=== PATIENT | female | born 1980 | race Caucasian/White ===

== ENCOUNTER 2017-04-16 11:13 | Emergency (ER) | payer SELFPAY ==
[~2017-04-16] VITALS: Ht 157.5 cm; Wt 109.7 kg
[~2017-04-16 11:13] MED LIST: IBUP-1116 PO; OXYC-360 PO
[2017-04-16 11:26] VITALS: BP 125/86; PULSE 63; RESP 16; TEMP 98.3; O2SAT 97
--- NOTE | 2017-04-16 11:37 | PD ---
HPI . Left ankle pain since 10 AM this morning Chief Complaint: Injury Time Seen by Provider: 11:37 Travel History International Travel<30 days: No Contact w/Intl Traveler<30days: No Traveled to known affect area: No History of Present Illness HPI 36 yr old female with no significant past medical history here with complaints of left ankle pain study and this morning. Patient was walking around her car which accidentally rolled her left ankle. She tells me that it has been weak for quite some time, and seemed to have given out on her today. At rest the pain is 2/10 without radiation, with movement pain is 8/10. Prior to arrival here in the emergency department she took 600 mg of Advil. She denies any head injury or loss of consciousness. She denies any chance of . PFSH Past Medical History Medical History: Denies Significant Hx Diminished Hearing: No Immunizations Current: Yes Tetanus Vaccination: Unknown Influenza Vaccination: No ?: Not LMP: 03/28/17 Past Surgical History Surgical History: No Previous Surgery Social History Alcohol Use: Yes (OCC) Tobacco Use: No Substance Use: No Allergies-Medications (Allergen,Severity, Reaction): Coded Allergies: Keflex (Verified Allergy, Severe, Swelling, 04/16/17) Penicillin (Verified Allergy, Severe, PRECAUTION - PTS MOM HAS ALLERGY, PT HAS NEVER TAKEN, 04/16/17) Reported Meds & Prescriptions Reported Meds & Active Scripts Active Ibuprofen 800 Mg Tab 800 Mg PO TID Review of Systems General / Constitutional: No: Fever Eyes: No: Visual changes HENT: No: Headaches Cardiovascular: No: Chest Pain or Discomfort Respiratory: No: Shortness of Breath Gastrointestinal: No: Abdominal Pain Genitourinary: No: Dysuria Musculoskeletal: Positive: Pain (left ankle) Skin: No Rash Neurologic: No: Weakness Psychiatric: No: Depression Endocrine: No: Polydipsia Hematologic/Lymphatic: No: Easy Bruising Physical Exam Narrative GENERAL: AAO x 3, no acute distress, Well-nourished, well-developed patient. SKIN: Warm and dry. No visible rashes or bruising. Mild edema of the lateral malleolus of the left ankle. HEAD: Normocephalic and atraumatic. EYES: No scleral icterus. No injection or drainage. ENT: No nasal drainage noted. Mucous membranes pink. Airway patent. NECK: Supple, trachea midline. No JVD. CARDIOVASCULAR: Regular rate and rhythm without murmurs, gallops, or rubs. RESPIRATORY: Breath sounds equal bilaterally. No accessory muscle use. No rhonchi or rales. GASTROINTESTINAL: Visual inspection normal EXTREMITIES: No cyanosis. Right lower extremely normal. Left lower extremity mild edema to the lateral malleolus, tenderness with rotation of the ankle, tender to palpation on the lateral malleolus proximal and distal. Capillary refill in the left lower extremity normal. Pedal pulses normal. BACK: No obvious deformity. No CVA tenderness. NEURO: CN II-12 intact, lower extremities strength normal bilaterally PSYCH: AAO x 3, normal affect. Data Data Last Documented VS Vital Signs Date Time Temp Pulse Resp B/P Pulse Ox O2 Delivery O2 Flow Rate FiO2 04/16/17 11:26 98.3 63 16 125/86 97 Orders Ankle, Complete ([id number]) (04/16/17 11:41) Caden Bandage (04/16/17 12:24) Crutches (04/16/17 12:24) MDM Medical Decision Making Medical Screen Exam Complete: Yes Emergency Medical Condition: Yes Medical Record Reviewed: Yes Differential Diagnosis Ankle sprain, less likely ankle fracture, less likely bone contusion Narrative Course 36 yr old female here with complaints of left ankle pain status post twisting earlier today. She has already taken 600 mg of Motrin prior to arrival and pain at this moment is 2/10. Although I do not suspect any acute bony normality, we'll go ahead and check an x-ray she does have some point tenderness to the lateral malleolus. Last Impressions Ankle X-Ray 04/16/17 1141 Signed Impressions: Service Date/Time: Sunday, April 16, 2017 11:51 - CONCLUSION: Unremarkable examination of the left ankle. Girma Slaughter MD Xray no acute fracture: Discussed with patient. Caden wrap and crutches provided. I advised her to follow-up with orthopedics if she continues to experience issues with her left ankle. Patient verbalized understanding of instructions, questions were answered, and thanked me for their care. I advised them if their condition worsens, please return to the nearest emergency room for further care. Diagnosis Primary Impression: Ankle pain, left Qualified Code: M25.572 - Acute left ankle pain Patient Instructions: General Instructions Additional Instructions: Please return to emergency department if your symptoms return or worsen. Follow up with your primary care provider. Take medications as prescribed. Rest the affected area as much as possible. Use crutches. Ice this area for 15-20 minutes at a time. You can do this every hour or as much as tolerated. Keep this area compressed (caden bandage) as tolerated. Elevate this area. Use ibuprofen as needed for pain and inflammation. If pain persists past 7-10 days, follow-up with your primary care provider, orthopedics or return to the nearest emergency department. Med/Other Pt SpecificInfo: Prescription(s) given Scripts Ibuprofen 800 Mg [id number] Mg PO TID #21 TAB Prov:Terrie Fritz DO 04/16/17 Disposition: 01 DISCHARGE HOME Condition: Stable Natalia Moctezuma Apr 16, 2017 11:37
[2017-04-16] MEDS ORDERED: IBUP800T23 PO (11:46)
--- NOTE | 2017-04-16 12:11 | RADRPT ---
EXAM DATE/TIME: 04/16/2017 11:51 [facility] COMPARISON: No previous studies available for comparison. INDICATIONS : Twist injury to left ankle MEDICAL HISTORY : None. SURGICAL HISTORY : None. ENCOUNTER: Initial ACUITY: 1 day PAIN SCORE: 8/10 LOCATION: Left ankle FINDINGS: Three view exam was performed of the left ankle. The bony structures are in normal alignment. No ev idence of fracture, dislocation, or soft tissue swelling. The ankle mortise is intact. No radiopaqu e foreign bodies are seen. Bony mineralization is normal. CONCLUSION: Unremarkable examination of the left ankle. Girma Slaughter MD on April 16, 2017 at 12:10 Board Certified Radiologist. This report was verified electronically.
== END 2017-04-16 12:44 | disposition home or self-care (01) ==
LOC: PHEFT 11:13
DX: M25.572 Pain in left ankle and joints of left foot (principal)
CPT/HCPCS: 73610; 99283; E0113